=== PATIENT | female | born 1955 | race Hispanic/Latino ===

== ENCOUNTER 2018-07-29 05:06 | Emergency (ER) | payer OTHER ==
[~2018-07-29] VITALS: Ht 165.1 cm; Wt 93.9 kg
[~2018-07-29 05:06] MED LIST: LORAZEPAM1 MG PO; SIMVASTATIN40 MG PO; TOPROL XL50 MG PO
--- OUTSIDE RECORDS SUMMARY | 2018-07-29 05:10 | XMS REPORT | Summary of Care ---
Author Author HILLARY MCKNIGHT M.D. Unknown Address Unknown Phone Unavailable Care Team Providers Care Blind Cleaner Name Role Phone HILLARY MCKNIGHT M.D. Unavailable Unavailable DAHIANA CASTILLO MD Unavailable Unavailable Functional Status Name Dates Details Functional status health issues are not documented Status: Name Dates Details Cognitive status health issues are not documented Status: Problems Name Dates Details Abnormal EKG (794.31, R94.31) Status: Active Hyperlipidemia (272.4, E78.5) Status: Active Hypertension (401.9, I10) Status: Active Sinus tachycardia (427.89, R00.0) Status: Active Medications Name Dates Details Toprol XL 100 MG Oral Tablet Extended Release 24 Hour TAKE 1 TABLET DAILY. * Start : 14-May-2018 Active AmLODIPine Besylate 5 MG Oral Tablet TAKE 1 TABLET DAILY, IF BLOOD PRESSURE 150 > * Refills: 0 * Start : 14-May-2018 Active LORazepam 1 MG Oral Tablet TAKE TABLET PRN * Refills: 0 * Start : 14-May-2018 Active Simvastatin 40 MG Oral Tablet TAKE 1 TABLET DAILY. * Refills: 0 * Start : 14-May-2018 Active Allergies and Adverse Reactions Name Dates Details No Known Drug Allergies (Allergy) Status: Active Past Medical History Name Dates Details Hyperlipidemia (272.4, E78.5) Status: Active Hypertension (401.9, I10) Status: Active Procedures Procedure Dates Details History of Hysterectomy Completed Immunization Name Dates Details Immunizations not documented Family History Name Dates Details Family history of cardiac disorder (V17.49, Z82.49) Status: Active Name Dates Details Family history of malignant neoplasm (V16.9, Z80.9) Status: Active Name Dates Details Family history of diabetes mellitus (V18.0, Z83.3) Status: Active Social History Name Dates Details Unknown if ever smoked Vital Signs Date Test Result Details [id number] BP Systolic 142 mm[Hg] Status: BP Diastolic 86 mm[Hg] Status: Height 64 in Status: Weight 204 lb Status: Body Mass Index Calculated 35.02 kg/m2 Status: Body Surface Area Calculated 1.97 m2 Status: Heart Rate 73 /min Status: Results Date Description Value Details Results not documented Plan of Care Name Dates Details Planned Observations Planned Goals not documented Planned Encounters Appointment; MELISSA GARZA On: 23-May-2018 13:00 Appointment; HILLARY MCKNIGHT M.D. On: 27-May-2018 15:00 Interventions Provided Plan* CHEST PAIN * - Exertional chest discomfort with dyspnea during last few weeks * - Will get treadmill stress test for evaluation * - Get TTE with Doppler for LVEF and WMA * - Start ASA 81mg PO qd * HTN * - Start BP log. Low salt diet * - Continue amlodipine and toprol. * HLD * - Continue statins * RTC with results Discussion/Summary* Clinical cardiac findings reviewed and discussed Instructions Name Dates Details Instructions not documented Encounters Appointment; HILLARY MCKNIGHT M.D. Encounter Diagnosis: Problem not documented On: 14-May-2018 13:00
== END 2018-07-29 05:40 | disposition home or self-care (01) ==
LOC: ER 05:06
DX: F41.1 Generalized anxiety disorder (principal); I10 Essential (primary) hypertension; E78.5 Hyperlipidemia, unspecified
CPT/HCPCS: 93005; 99283